=== PATIENT | male | born 1990 ===

== ENCOUNTER 2024-06-12 13:23 | Emergency (ER) | payer OTHER, SELFPAY ==
[2024-06-12 13:26] VITALS: BP 116/67
--- NOTE | 2024-06-12 14:47 | ED.GENMED ---
History of Present Illness
General
Chief Complaint: Musculo-Skeletal Complaint
Source: patient
Time Seen by Provider: 06/12/24 14:02
History of Present Illness
History of Present Illness:
33-year-old very pleasant male presents emergency department with approximately 8 days of left-sided back pain that radiates to the posterior lateral aspect of his leg to the level of the ankle. The pain was gradual in onset, and is particularly
worse when he stands or walks, and better with sitting. 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 He denies a history of recent injections, diabetes, perianal anesthesia, bowel or bladder incontinence,
abdominal pain, numbness, focal weakness, difficulty walking, chest pain, shortness of breath, swelling, or other complaints. He denies a history of trauma or active cancer. Patient has been taking intermittent Tylenol with minimal relief of
symptoms.
Past History
Past History
ED Past Medical History: None
ED Past Surgical History: None
Social History
Tobacco: Non-smoker
Alcohol: None
Drug: None
Employment: Employed
Phy Exam
Physical Exam
Physical Exam:
GENERAL: Alert , in no apparent distress
EYE: pupils equal and reactive
NECK: Supple, no significant adenopathy.
ENT: o/p clr, mmm.
CARDIAC: Regular rate and rhythm .
LUNGS: Clear breath sounds bilaterally, no acute respiratory distress, no wheezes/rales/rhonchi
ABDOMEN: Soft, without focal tenderness, no r/g, no cvat
NEUROLOGICAL: Alert and oriented, no focal neuro deficits...2+ patellar reflexes bilat, motor 5/5, sens intact, + SLr L
SKIN: Warm and dry, skin intact.
MUSCULOSKELETAL: No edema, well perfused.
PSYCH: Normal and appropriate interaction.
BACK: no midline ttp, no redness/warmth/swelling, no skin abnl
Course
Vital Signs
Initial and Last Documented VS:
Initial Vital Signs
Temp Pulse Resp BP Pulse Ox
97.4 F 62 18 116/67 97
06/12/24 13:26 06/12/24 13:26 06/12/24 13:26 06/12/24 13:26 06/12/24 13:26
Last Documented Vital Signs
Temp Pulse Resp BP Pulse Ox
97.4 F 62 18 11667 97
06/12/24 13:26 06/12/24 13:26 06/12/24 13:26 06/12/24 13:26 06/12/24 13:26
*Critical Care Note
Total Time (30-74mins, 75-104mins- exclusive of procedures): Not Applicable
Update Note
Update Note:
Patient presents to the Emergency Department with back pain extending down the leg
Number and Complexity of Problems Addressed at the Encounter
� Chronic conditions affecting care:
� Acute Exacerbation and/or Progression of Chronic Illness:
� Differential Diagnosis includes: But not limited to cauda equina, myofascial syndrome, sciatica, muscular strain, AAA, etc. etc.
Amount and/or Complexity of Data to be Reviewed and Analyzed
� I performed an independent evaluation of and my interpretation is:
EKG:
CT:
Xrays:
Laboratory Studies:
Other:
� Review of other/old records reveals:
� Clinical information was obtained by an independent historian:
� Prescriptions/Medications Considered but not given:
� Further testing considered but not performed:
Risk of Complications and/or Morbidity or Mortality of Patient Management
� Social determinants of health affecting care:
� Discussion with other providers (PCP, Hospitalists, Consultants, etc):
� Escalation of care including admission/observation vs risk of discharge considered: Physical exam and history highly consistent with radiculopathy, likely sciatica. Patient is neurologically intact. Pain/symptoms not
suggestive of cauda equina or acute vascular event. No motor weakness or difficulty walking in ED. Discussed with patient importance of follow-up and reasons to return to the ER. He has been taking Tylenol with inconsistent relief of pain. Will
start Medrol Dosepak, antacid, avoid nonsteroidals while taking steroids, and close follow-up.
ED Attending Note
-
Portions of this chart may have been created with voice recognition software.� Occasional wrong word or��sound alike� substitutions may have occurred due to the inherent limitations of voice recognition software.
Discharge Plan
Departure
Patient Disposition: Home (Routine Discharge)
Date of Disposition: 06/12/24
Time of Disposition: 14:51
Patient with high blood pressure during this ER visit?: No
Condition: Good
Discharge Problem:
Back pain
Instructions: Back Pain
Prescriptions:
New
methylprednisolone [Medrol (Remi)] 4 mg tablets,dose pack
See Rx Instructions .ROUTE .COMPLEX Qty: 21 0RF
Rx Instructions:
for 6 days
famotidine [Pepcid] 20 mg tablet
20 mg PO DAILY Qty: 14 0RF
Referrals:
Kaushik Hernandez MD [Family Provider] - Follow up in 1 week
Activity Restrictions/Additional Instructions:
IF YOU DEVELOP FEVER, CHILLS, INCREASING OR NEW PAIN, SWELLING, NUMBNESS, WEAKNESS, DIFFICULTY USING THE RESTROOM/INCONTINENCE, OR OTHER WORRISOME SIGNS, PLEASE RETURN TO THE ER IMMEDIATELY.
Discharge Date and Time
Print Language: GAMBIAN
[2024-06-12 15:06] VITALS: BP 129/76
== END 2024-06-12 15:07 | disposition home or self-care (01) ==
LOC: EMR 13:23
PROVIDERS: EMERGENCY PHYSICIAN Emergency Medicine; FAMILY PHYSICIAN Family Medicine
DX: M54.9 Dorsalgia, unspecified (principal)
CPT/HCPCS: 99282

== ENCOUNTER → 2024-07-28 10:35 | Outpatient (REF) | payer OTHER, SELFPAY | LOC: HWRAD 10:35 | DX: M54.16 Radiculopathy, lumbar region (principal); M41.9 Scoliosis, unspecified | CPT/HCPCS: 72110 ==